=== PATIENT | male | born 1990 | race Two or more races ===

== ENCOUNTER 2024-07-16 06:36 | Emergency (ER) | payer SELFPAY ==
--- NOTE | ~2024-07-16 | XR_ITS ---
CLINICAL HISTORY: cough 2 view chest x-ray Comparison: None Findings: The lungs are clear. Heart size is normal. No acute fracture. IMPRESSION: 1. No acute findings. This document has been electronically signed by: Ian Verdin MD on 07/16/2024 07:29:36
[2024-07-16 06:38] VITALS: BP 128/81; BP 134/93; PULSE 76; PULSE 91; RESP 18; O2SAT 92; O2SAT 96; BMI 24.8
[2024-07-16 06:43] VITALS: PULSE 87; RESP 23; O2SAT 97
[2024-07-16] MEDS: Albuterol Sulfate 2.5 MG, Albuterol/Iprat 2.5/0.5MG 3 ML 3 ML INHALE (06:47)
--- NOTE | 2024-07-16 06:48 | ED.ASTHMA ---
HPI - Asthma General Chief Complaint: Asthma Stated Complaint: ASHMA EXACERBATION Time Seen by Provider: 07/16/24 06:40 Source: patient and EMS Mode of arrival: EMS Limitations: no limitations History of Present Illness ED Provider: Lu Mathew APRN HPI Narrative: This is a 33-year-old male who has a history of asthma who presents to the ER with complaints of cough, wheezing and chest tightness since last evening. Patient denies any recent illnesses. No recent travel. No sick contact. He has had no associated fevers, chills, nausea, vomiting, runny nose. Patient smokes marijuana daily. Denies any additional tobacco or drug use. He has had a history of multiple hospitalizations. No history of ICU admissions. Of note, patient moved here 3 months ago from [place] and has not established a primary care since being here. He did run out of his albuterol just prior to arrival. Patient was picked up by EMS with a room air saturation of 92%. He received albuterol, Atrovent and 125 mg of Solu-Medrol prior to arrival Related Data Previous Rx's ?Medication ?Instructions ?Recorded prednisone 20 mg tablet 60 mg (3 x 20 mg) PO DAILY #15 tabs 07/16/24 Allergies Allergy/AdvReac Type Severity Reaction Status Date / Time No Known Allergies Allergy Verified 07/16/24 06:47 Review of Systems Review of Systems: Yes all other systems are reviewed and are negative Constitutional: Constitutional: Reports no additional constitutional complaints, Denies body ache(s), Denies chills, Denies fever(s), Denies headache(s) and Denies weakness Eyes: Eyes: Reports no additional eye complaints and Denies change in vision ENT: Reports system reviewed and no additional complaints, except as documented, Denies dizziness, Denies headache(s), Denies nasal congestion, Denies nasal discharge and Denies neck pain Cardiovascular: Cardiovascular: Reports no additional cardiovascular complaints, Denies chest pain, Denies leg edema and Denies dyspnea Respiratory: Respiratory: Reports no additional respiratory complaints, Reports cough, Denies dyspnea and Reports wheezing Gastrointestinal: Gastrointestinal: Reports no additional gastrointestinal complaints, Denies abdominal pain, Denies diarrhea, Denies nausea and Denies vomiting Genitourinary: Genitourinary: Denies urinary incontinence Musculoskeletal: Musculoskeletal: Reports no additional musculoskeletal complaints, Denies back pain, Denies arthralgias, Denies joint swelling, Denies neck pain, Denies numbness and Denies tingling Integumentary/Breasts: Skin/Breast: Reports system reviewed and no additional complaints, except as docu and Denies rash Neurologic: Reports system reviewed and no additional complaints, except as documented, Denies Abnormal speech present, Denies dizziness, Denies headache(s), Denies numbness, Denies tingling and Denies weakness Allergic/Immunologic: Allergic/Immunologic: Reports wheezing [facility] Past Medical History Attestation statement: The following information was validated with the patient. Source: old records reviewed and nursing notes reviewed Social History Social History Advance Directives: No Advance Directives Information Provided: Yes Do you have a plan to hurt others: No Plan Physical Exam Vital Signs: Vital Signs: Last Vital Signs Pulse 87 07/16/24 06:43 Resp 23 H 07/16/24 06:43 BP 134/93 H 07/16/24 06:38 Pulse Ox 96 07/16/24 06:38 O2 Del Method Room Air 07/16/24 06:38 BMI result Body Mass Index 24.8 Const: General: cooperative, healthy appearing, comfortable and no acute distress Orientation/consciousness: patient oriented x3 Limitations: no limitations HEENT: Head: Yes normal to inspection Ears: hearing grossly normal bilaterally and TM's normal bilaterally General nose exam: Normal external nose present Face and sinus: Yes normal facial exam Mouth: Normal oral and palatal mucosa present Throat: Yes posterior oropharynx normal, Yes tonsils normal and Yes uvula midline Eyes: General: appearance normal, both eyes and all related structures Pupils: Equal, round and reactive pupils present Neck: Neck: Yes normal visual inspection Chest: Chest palpation & inspection: normal inspection of the chest Resp: Other: Mild expiratory wheezing Effort & Inspection: normal respiratory effort Cardio: Rate: regular rate Rhythm: regular rhythm Peripheral pulses: Peripheral pulses 2+ throughout GI: Inspection: Yes normal to inspection Palpation (GI): Soft to palpation and nontender Auscultation: normal bowel sounds Back/Spine/Pelvis: Thoracic/Lumbar Spine: thoracic and lumbar spine normal to inspection Skin: General skin exam: no rashes or lesions noted Neuro: General: patient oriented x3, no focal motor deficits and normal sensation to monofilament Cranial nerves: Yes Equal, round and reactive pupils present Cognition (Neuro): normal cognition Speech: No Abnormal speech present Gait exam (Neuro): Normal gait present Motor exam (neuro): 5/5 motor strength present throughout Extrem: General: Yes normal to inspection, Yes no pedal edema and Yes no calf tenderness Course Course Course Narrative: Patient feels improved. Lungs are clear. Oxygen saturations greater than 95%. Will discharge home with prednisone course and albuterol refill. Reviewed worrisome signs and symptoms of when to return to the emergency room. Comfortable plan for discharge home. Medications Administered Generic Name Dose Route Start Last Admin Trade Name Freq PRN Reason Stop Dose Admin Magnesium Sulfate 2 gm in 50 mls @ 25 mls/hr 07/16/24 06:47 07/16/24 07:20 Magnesium Sulfate/H2o IV 07/16/24 08:46 25 mls/hr ONCE ONE Administration Discontinued Medications Generic Name Dose Route Start Last Admin Trade Name Freq PRN Reason Stop Dose Admin Albuterol Sulfate 2 puff 07/16/24 07:30 07/16/24 07:35 Albuterol Sulfate 90 Mcg 8 Gm Inhaler INHALE 07/16/24 07:31 2 puff ONCE ONE Administration Albuterol Sulfate 2 puff 07/16/24 08:09 07/16/24 08:15 Albuterol Sulfate 90 Mcg 8 Gm Inhaler INHALE 07/16/24 08:10 Not Given ONCE ONE Albuterol Sulfate 2.5 mg/ 0 mg 07/16/24 06:43 07/16/24 06:47 Albuterol/Ipratropium 3 ml INHALE 07/16/24 06:44 5 dose ONCE ONE Administration Medical Decision Making Medical Decision Making [facility] Narrative: 33-year-old male with a history of asthma presents the ER with 24 hours of cough, wheezing and chest tightness unrelieved with home medications. Patient received albuterol, Atrovent and Solu-Medrol prior to arrival with EMS. Now feeling much improved. On arrival or [place] saturation is 96%. He has mild expiratory wheezing. This exam is otherwise benign Patient will have bronchodilator protocol. Will give 2 g magnesium. Will obtain chest x-ray and viral testing Differential Diagnosis Differential Diagnoses: The differential diagnosis associated with the presentation includes Asthma exacerbation Low suspicion for viral syndrome, pneumonia Perc is 0. Low suspicion for PE Admission/Observation Consideration of admission/observation: Escalation of care including admission/observation considered Asthma exacerbation with no hypoxia or tachypnea requiring supplemental oxygen and or admission Lab Data MDM Lab Attestation statement: I reviewed the patient's lab results. Labs: Lab Results 07/16/24 Range/Units 07:14 Influenza Type A (PCR) NEGATIVE (Negative) Influenza Type B (PCR) NEGATIVE (Negative) RSV RNA Qual (PCR) NEGATIVE (Negative) SARS-CoV-2 RNA (RT-PCR) NEGATIVE (Negative) Independent Interpretation I performed an independent interpretation of an: Plain X-Ray Interpretation: I independently viewed the x-ray and agree with the radiology report Radiology Impression Discussion of test interpretation with radiology: I have reviewed the radiologist's reading. Radiologist Impression: [place] [id number] XRay Report Signed Patient: Reece Reddy MR#: [id number] : 1990 Acct:[id number] Age/Sex: 33 / M ADM Date: 07/16/24 Loc: .ED Attending Dr: Ordering Physician: Lu Mathew NP Date of Service: 07/16/24 Procedure(s): XR chest 2V Accession Number(s): [id number] cc: Lu Mathew NP; Physician,Unknown ~ CLINICAL HISTORY: cough 2 view chest x-ray Comparison: None Findings: The lungs are clear. Heart size is normal. No acute fracture. IMPRESSION: 1. No acute findings. Independent Historian Clinical information obtained from an independent historian. History obtained from or confirmed by: EMS Prescription Management I considered prescription management with: Antibiotic Chronic Conditions Asthma Social Determinants Patient?s care significantly limited by Social Determinants of Health including: Problems related to primary support group Discharge Plan Discharge Clinical Impression: Asthma with acute exacerbation Patient Disposition: Home, Self-Care Instructions: Asthma (ED) Additional Instructions: Use your albuterol 2 puffs every 4 hours as needed Your test for flu, COVID, RSV are negative Your x-ray is negative for pneumonia Start prednisone tomorrow Return for any worsening symptoms Establish a primary care doctor here Prescriptions: New prednisone 20 mg tablet 60 mg PO DAILY Qty: 15 0RF Referrals: Physician,Unknown J [Primary Care Provider] - 1 week Print Language: Rw[place]an
[2024-07-16] MEDS: Magnesium Sulfate/H2O 2 GM/50 ML PIGGYBACK IV (07:20)
[2024-07-16] MEDS: Albuterol Sulfate 90 MCG 8 GM INHALER 2 PUFF INHALE (07:35)
[2024-07-16 08:03] LABS: Influenza A PCR NEGATIVE (Negative); Influenza B PCR NEGATIVE (Negative); Resp Syncy Virus RNA Qual PCR NEGATIVE (Negative); SARS COV2 PCR INHOUSE NEGATIVE (Negative)
[2024-07-16 08:20] VITALS: BP 117/80; PULSE 86; RESP 16; TEMP 37.3; O2SAT 98
== END 2024-07-16 08:23 | disposition home or self-care (01) ==
PROVIDERS: Nurse Practitioner Family; Emergency Provider Internal Medicine
DX: J45.901 Unspecified asthma with (acute) exacerbation (principal); R05.9 Cough, unspecified; R07.89 Other chest pain; Z03.818 Encounter for observation for suspected exposure to other biological agents ruled out
CPT/HCPCS: 0241U; 71046; 94640; 96374; 99283; 99284; J3475

== ENCOUNTER → 2024-07-16 06:47 | Outpatient (BNV) | payer OTHER, SELFPAY | PROVIDERS: Emergency Provider Internal Medicine; Visit Provider Radiology Diagnostic Radiology | DX: R05.9 Cough, unspecified (principal) | CPT/HCPCS: 71046 ==